=== PATIENT | male | born 1990 | race Two or more races ===

== ENCOUNTER 2021-05-07 20:30 | Emergency (ER) | payer OTHER, SELFPAY ==
[2021-05-07 20:45] VITALS: BP 154/99; PULSE 72; RESP 18; TEMP 36.7; O2SAT 98; BMI 25.7
--- NOTE | 2021-05-07 21:42 | ED.DENTAL ---
HPI - Dental/Oral General Chief complaint: Dental/Oral Stated complaint: dental pain Source: patient Mode of arrival: ambulatory Limitations: no limitations History of Present Illness HPI Narrative: 30-year-old male presents with 4 days of left-sided dental pain. Has not seen a dentist in over year, and has been taking Tylenol and Motrin with no effect. MD Complaint: tooth pain Location: Tooth # (19) Onset (ago): day(s) (4) Duration: constant Severity: severe Severity scale (1-10): 10 Relieving factors: nothing Exacerbating factors: chewing, cold and heat Context: history of dental caries and poor dental care Treatment prior to arrival: oral analgesic Related Data Previous Rx's Medication Instructions Recorded amoxicillin 875 mg-potassium 1 tab PO Q12H 10 Days #20 tab 05/07/21 clavulanate 125 mg tablet (Augmentin) ibuprofen 600 mg tablet 600 mg PO Q6H PRN #90 tab 05/07/21 Allergies Allergy/AdvReac Type Severity Reaction Status Date / Time No Known Allergies Allergy Verified 05/07/21 20:45 Review of Systems Review of Systems: Constitutional: No Fever, No Chills ENT/Mouth: No swallowing difficulty, no change in voice, positive dental pain, positive jaw pain, no facial swelling Eyes: No Eye Pain, No Swelling Cardiovascular: No Chest Pain, No SOB Respiratory: No Cough, No Sputum, No Wheezing, No Smoke Exposure, No Dyspnea Gastrointestinal: No Nausea, No Vomiting, No Diarrhea Genitourinary: No Dysuria Musculoskeletal: No Myalgias Skin: No rash Neuro: No Weakness, No Numbness, No Headache Yes all other systems are reviewed and are negative [facility] Past Medical History Attestation statement: The following information was validated with the patient. Source: old records reviewed Medical History No active medical problems Social History Social History Advance Directives: No Advance Directives Information Provided: Yes Physical Exam Vital Signs: Vital Signs: Last Vital Signs Temp 98.0 F 05/07/21 20:45 Pulse 72 05/07/21 20:45 Resp 18 05/07/21 20:45 BP 154/99 H 05/07/21 20:45 Pulse Ox 98 05/07/21 20:45 Body Mass Index 25.7 Appearance: Alert. Oriented X3. No acute distress. Eyes: Pupils equal, round and reactive to light. ENT: Pharynx normal. Dental caries to 19, no abscess or swelling noted. Neck: Normal inspection. Neck supple. CVS: Normal heart rate and rhythm. Pulses normal. Respiratory: No respiratory distress. Breath sounds normal. Abdomen: Soft and nontender. Skin: Skin warm and dry. Normal skin color. Normal skin turgor. Extremities: No lower extremity edema. Neuro: No motor deficit. No sensory deficit. Cranial nerves 2-12 intact. Course Course Course Narrative: 30-year-old male presents with 10/10 left-sided dental pain. Has not seen a dentist in over a year. Has been taking Tylenol and Motrin but not on a regular basis. Will order Toradol injection, and Augmentin. Patient was referred to a dentist. It was also noted that his blood pressure is elevated at 154/99, he was advised to follow up with his primary care physician. MDM - Dental/Oral Differential Diagnosis Differential diagnosis: Likely dental caries, toothache and dental abscess Medical Records Attestation: I reviewed the patient's medical records. Discharge Plan Discharge Clinical Impression: Dental caries, Toothache Patient Disposition: Home, Self-Care Instructions: Toothache (ED) Additional Instructions: You were evaluated for dental pain. Please follow-up with your dentist. Take Augmentin twice a day for the next 10 days. Take Motrin and Tylenol as needed for pain management. Please follow-up with your primary care physician for an elevated blood pressure. You may need blood pressure medications. Thank you for choosing this emergency department for evaluation. Please follow-up with primary care physician as needed. Return to the emergency department for any new, concerning, or worsening symptoms. Prescriptions: New amoxicillin-pot clavulanate [Augmentin] 875-125 mg tablet 1 tab PO Q12H 10 Days Qty: 20 RF: 0 ibuprofen 600 mg tablet 600 mg PO Q6H PRN (Reason: pain) Qty: 90 RF: 0 Interventions: ED Discharge Assessment Last Done: 05/07/21 22:38 Discharge Date/Time: 05/07/21 22:39
[2021-05-07] MEDS: Ketorolac Tromethamine 60 MG/2 ML VIAL IM (22:28)
[2021-05-07] MEDS: Amoxicillin/Potassium Clav 875 MG TABLET PO (22:28)
== END 2021-05-07 22:39 | disposition home or self-care (01) ==
LOC: HO.ED 22:01
PROVIDERS: Emergency Provider Emergency Medicine
DX: K02.9 Dental caries, unspecified (principal); K08.89 Other specified disorders of teeth and supporting structures
CPT/HCPCS: 96372; 99283; 99284; J1885